=== PATIENT | male | born 1935 | race Two or more races ===

== ENCOUNTER 2023-01-10 09:10 | Inpatient (IN) | payer MEDICARE, OTHER ==
[~2023-01-10] VITALS: Ht 182.9 cm; Wt 85.7 kg
[2023-01-10 10:01] LABS: Basophils # (auto) 0 10 ^3/uL (0-0.2); Basophils % (auto) 0.2 % (0.0-2.0); Eosinophils # (auto) 0 10 ^3/uL (0-0.8); Hematocrit 39.5 % (41.0-53.0); Hemoglobin 13.3 g/dL (13.5-17.5); Lymphocytes # (auto) 0.5 10 ^3/uL (0.4-5.4); Lymphocytes % (auto) 4.9 % (10.0-50.0); Mean Corpuscular Hemoglobin 27.8 pg (28.0-32.0); Mean Corpuscular Hgb Conc. 33.7 g/dL (32.0-36.0); Mean Corpuscular Volume 82.6 fL (80.0-100.0); Monocytes # (auto) 0.1 10 ^3/uL (0-1.3); Monocytes % (auto) 1.2 % (0.0-12.0); Neutrophils # (auto) 9.7 10 ^3/uL (1.6-8.6); Neutrophils % (auto) 93.7 % (37.0-80.0); Red Blood Cells 4.78 10^6/uL (4.5-5.90); Red Cell Distribution Width 15.5 % (11.8-14.3); White Blood Cell 10.4 10^3/uL (4.4-10.8)
[2023-01-10 10:11] LABS: Urine Bacteria MANY /hpf (None Seen); Urine Blood 3+ /uL (Negative); Urine Mucus FEW (None Seen); Urine Specific Gravity 1.023 (1.001-1.035); Urine WBC 107 /hpf (0 - 3)
[2023-01-10] MEDS ORDERED: CEFEPIME 1GM/ 50ML 50 ML IV ONE (10:15)
[2023-01-10] MEDS ORDERED: ACETAMINOPHEN 325 MG TAB PO ONE (10:15)
[2023-01-10] MEDS ORDERED: LACTATED RINGER'S 2,000 ML IV ONE (10:15)
[2023-01-10] MEDS ORDERED: VANCOMYCIN 1GM/250ML 250 ML IV ONE (10:15)
[2023-01-10 10:25] LABS: Albumin 3.5 g/dL (3.4-5.0); Calcium 8.3 mg/dL (8.5-10.1); Potassium 3.6 mmol/L (3.5-5.1)
[2023-01-10 10:27] LABS: Lactic Acid w/Reflex 4.5 mmol/L (0.4-2.0)
[2023-01-10 10:30] LABS: BUN/Creatinine Ratio 24.8; Bilirubin, Total 0.7 mg/dL (0.2-1.0); Total Protein 7.3 g/dL (6.4-8.2)
[2023-01-10] MEDS ORDERED: ASPirin 325 MG TAB PO ONE (12:15)
[2023-01-10] MEDS ORDERED: MORPHINE SULFATE 4 MG/ML SYR/VIAL IV PRN (13:45)
[2023-01-10] MEDS ORDERED: ACETAMINOPHEN 325 MG TAB PO PRN (13:45)
[2023-01-10] MEDS ORDERED: NITROGLYCERIN 0.4 MG SL TAB SL PRN (13:45)
[2023-01-10] MEDS: SODIUM CHLORIDE 0.9% 1,000 ML IV SCH ×2 (13:45→23:45)
[2023-01-10] MEDS ORDERED: ONDANSETRON HCL 4 MG/2 ML VIAL IV PRN (13:45)
[2023-01-10] MEDS: ATORVASTATIN 20 MG TAB PO SCH (21:21)
[2023-01-10] MEDS: ENOXAPARIN SOD 100 MG/1 ML SYRINGE SC SCH (21:22)
[2023-01-10] MEDS: CARVEDILOL 3.125 MG TAB PO SCH (21:22)
[2023-01-11 05:37] LABS: Basophils # (auto) 0 10 ^3/uL (0-0.2); Basophils % (auto) 0.4 % (0.0-2.0); Eosinophils # (auto) 0.2 10 ^3/uL (0-0.8); Eosinophils % (auto) 1.3 % (0.0-7.0); Hemoglobin 11.1 g/dL (13.5-17.5); Lymphocytes # (auto) 1.6 10 ^3/uL (0.4-5.4); Lymphocytes % (auto) 13.9 % (10.0-50.0); Mean Corpuscular Hemoglobin 27.6 pg (28.0-32.0); Mean Corpuscular Hgb Conc. 33.6 g/dL (32.0-36.0); Mean Corpuscular Volume 82.3 fL (80.0-100.0); Monocytes # (auto) 0.9 10 ^3/uL (0-1.3); Neutrophils # (auto) 8.8 10 ^3/uL (1.6-8.6); Neutrophils % (auto) 76.4 % (37.0-80.0); Red Blood Cells 4.01 10^6/uL (4.5-5.90); Red Cell Distribution Width 15.6 % (11.8-14.3); White Blood Cell 11.5 10^3/uL (4.4-10.8)
[2023-01-11 05:54] LABS: BUN/Creatinine Ratio 38.4; Potassium 3.5 mmol/L (3.5-5.1)
[2023-01-11] MEDS ORDERED: LISINOPRIL 5 MG TAB PO SCH (10:00)
[2023-01-11] MEDS ORDERED: ASPirin 81 mg TAB PO SCH (10:00)
[2023-01-11] MEDS ORDERED: CLOPIDOGREL BISULFATE 75 MG TAB PO SCH (10:00)
[2023-01-11] MEDS: CARVEDILOL 3.125 MG TAB PO SCH (11:07)
[2023-01-11] MEDS: DOCUSATE SOD 100 MG CAP PO SCH (11:07)
[2023-01-11] MEDS: cefTRIAXone 1GM/50ML D5W 50 ML IV SCH (11:08)
[2023-01-11] MEDS: ENOXAPARIN SOD 100 MG/1 ML SYRINGE SC SCH (11:08)
[2023-01-11] MEDS: SODIUM CHLORIDE 0.9% 1,000 ML IV SCH ×2 (11:15→13:04)
[2023-01-11] MEDS: TAMSULOSIN HYDROCHLORIDE 0.4 MG CAP PO SCH (18:04)
[2023-01-11 22:00] VITALS: BP 150/82
[2023-01-11] MEDS: ATORVASTATIN 20 MG TAB PO SCH (23:07)
[2023-01-12] MEDS: SODIUM CHLORIDE 0.9% 1,000 ML IV SCH (02:11)
[2023-01-12 05:00] VITALS: BP 138/75
[2023-01-12 06:11] LABS: Basophils # (auto) 0 10 ^3/uL (0-0.2); Basophils % (auto) 0.7 % (0.0-2.0); Eosinophils # (auto) 0.3 10 ^3/uL (0-0.8); Eosinophils % (auto) 3.6 % (0.0-7.0); Hematocrit 33.1 % (41.0-53.0); Hemoglobin 11.5 g/dL (13.5-17.5); Lymphocytes # (auto) 1.1 10 ^3/uL (0.4-5.4); Lymphocytes % (auto) 15.8 % (10.0-50.0); Mean Corpuscular Hemoglobin 28.6 pg (28.0-32.0); Mean Corpuscular Hgb Conc. 34.7 g/dL (32.0-36.0); Mean Corpuscular Volume 82.4 fL (80.0-100.0); Monocytes # (auto) 0.6 10 ^3/uL (0-1.3); Neutrophils % (auto) 70.9 % (37.0-80.0); Red Blood Cells 4.02 10^6/uL (4.5-5.90); White Blood Cell 7.1 10^3/uL (4.4-10.8)
[2023-01-12 06:19] LABS: INR 0.97 (0.9-1.15); Partial Thromboplastin Time 31.7 sec (24.6-33.4)
[2023-01-12 06:21] LABS: BUN/Creatinine Ratio 33.8; Calcium 7.9 mg/dL (8.5-10.1); Potassium 3.8 mmol/L (3.5-5.1)
[2023-01-12 08:00] VITALS: BP 150/69
[2023-01-12 08:42] VITALS: BP 150/69
[2023-01-12] MEDS: cefTRIAXone 1GM/50ML D5W 50 ML IV SCH (10:40)
[2023-01-12] MEDS: DOCUSATE SOD 100 MG CAP PO SCH (10:41)
[2023-01-12 13:00] VITALS: BP 158/63
[2023-01-12 17:00] VITALS: BP 138/74
[2023-01-12] MEDS: TAMSULOSIN HYDROCHLORIDE 0.4 MG CAP PO SCH (17:53)
[2023-01-12 22:00] VITALS: BP 149/79
[2023-01-13 05:00] VITALS: BP_SYST 114; BP_SYST 149; BP_DIAS 55; BP_DIAS 71
[2023-01-13 08:00] VITALS: BP 149/81
[2023-01-13] MEDS: DOCUSATE SOD 100 MG CAP PO SCH (09:51)
[2023-01-13] MEDS: cefTRIAXone 1GM/50ML D5W 50 ML IV SCH (09:52)
[2023-01-13] MEDS ORDERED: LEVO500T31 PO (11:39)
[2023-01-13] MEDS ORDERED: TAM04C PO (11:39)
[2023-01-13 12:00] VITALS: BP 140/75
[2023-01-13 13:18] VITALS: BP 149/81
[2023-01-13 13:53] LABS: Urine Bacteria NONE SEEN /hpf (None Seen); Urine Blood TRACE /uL (Negative); Urine Specific Gravity 1.015 (1.001-1.035); Urine WBC 7 /hpf (0 - 3)
== END 2023-01-13 15:05 | disposition home or self-care (01) | DRG 871 ==
LOC: ER 09:10 → TELE 13:49 → TELE-EAST 01-11 22:15 → EAST 01-12 10:51
PROVIDERS: ADMIT Hospitalist; ATTEND Internal Medicine
DX: A41.9 Sepsis, unspecified organism (principal); I21.A1 Myocardial infarction type 2; N39.0 Urinary tract infection, site not specified; I10 Essential (primary) hypertension; Z20.822 Contact with and (suspected) exposure to COVID-19; N40.1 Benign prostatic hyperplasia with lower urinary tract symptoms
CPT/HCPCS: 36415; 71045; 74177; 80048; 80053; 81001; 83605; 84484; 85025; 85610; 85730; 87040; 87086; 87426; 87804; 93005; 96365; 96366; 96368; 97116; 97163; 97530; 99291; G0378; J0696